=== PATIENT | male | born 1955 | race Caucasian/White ===

== ENCOUNTER 2024-11-22 11:41 | Emergency (ER) | payer MEDICARE, SELFPAY ==
[~2024-11-22] VITALS: Ht 165.1 cm; Wt 69.0 kg
[2024-11-22 11:48] VITALS: O2SAT 99
[2024-11-22 13:13] LABS: BASOPHILS % 0.6 % (0.0-2.0); EOSINOPHILS % 2.7 % (0.0-5.0); HEMATOCRIT. 42.9 % (42.0-52.0); HEMOGLOBIN. 14.6 g/dL (14.0-18.0); LYMPHOCYTES % 40.8 % (20.0-50.0); MEAN CORPUSCULAR HEMOGLOBIN 29.9 pg (28.0-32.0); MEAN CORPUSCULAR HGB CONC 34.1 g/dL (31.0-37.0); MEAN CORPUSCULAR VOLUME 87.7 fL (80.0-94.0); MEAN PLATELET VOLUME 7.4 fl (7.4-10.4); MONOCYTES % 7.6 % (2.0-8.0); NEUTROPHILS % 48.3 % (40.0-76.0); PLATELET 245 x1000/uL (130-400); RED BLOOD CELL COUNT 4.89 mill/uL (4.7-6.1); RED CELL DISTRIBUTION WIDTH 13.3 % (11.6-14.6); WHITE BLOOD COUNT 7.3 x1000/uL (4.5-11.0)
[2024-11-22 13:21] LABS: CHLORIDE 105 mEq/L (98-107); POTASSIUM 4.1 mEq/L (3.5-5.1); SODIUM 142 mEq/L (136-145)
[2024-11-22 13:22] LABS: CALCIUM 9.6 mg/dL (8.7-10.4); CARBON DIOXIDE 27 mEq/L (21-32); INR 0.9; PROTHROMBIN TIME 10.2 sec (9.6-11.0)
[2024-11-22 13:27] LABS: GLUCOSE 101 mg/dL (70-105); UREA NITROGEN BLOOD 15 mg/dL (9-23)
[2024-11-22] MEDS: IOHEXOL-350 100 ML BOTTLE ONE (16:17)
[2024-11-22 16:28] LABS: CLARITY URINE CLEAR (CLEAR); COLOR URINE YELLOW (YELLOW); GLUCOSE URINE NEGATIVE (NEGATIVE); KETONES URINE NEGATIVE (NEGATIVE); LEUKOCYTE ESTERASE URINE NEGATIVE (NEGATIVE); NITRITE URINE NEGATIVE (NEGATIVE); OCCULT BLOOD URINE NEGATIVE (NEGATIVE); PROTEIN URINE NEGATIVE (NEGATIVE); SPECIFIC GRAVITY URINE 1.061 (1.005-1.030); UROBILINOGEN URINE 0.2 E.U./dL (0.2-1.0)
[2024-11-22 17:40] VITALS: BP 130/88; PULSE 86; RESP 16; TEMP 37; O2SAT 99
[2024-11-22] MEDS ORDERED: IOHEXOL-300 100 ML BOTTLE ONE (22:02)
[2024-11-22] MEDS ORDERED: IOHEXOL-350 100 ML BOTTLE ONE (22:02)
== END 2024-11-22 17:42 | disposition home or self-care (01) ==
LOC: ER 11:41
DX: R63.4 Abnormal weight loss (principal); R06.02 Shortness of breath; Z79.899 Other long term (current) drug therapy
CPT/HCPCS: 99285; 71260; 80048; 81003; 83880; 83605; 83690; 85025; 85610; 36415; 74177; Q9967 ×2